=== PATIENT | female | born 1955 | race African-American/Black ===

== ENCOUNTER 2017-06-30 15:19 | Inpatient (IN) | payer OTHER, BC ==
[~2017-06-30] VITALS: Ht 167.6 cm; Wt 102.4 kg
[2017-06-30] MEDS ORDERED: ceFAZolin 2 GM PREMIX 50 ML ONE (15:23)
[2017-06-30] MEDS ORDERED: DIPHTH/TETANUS/ACEL PERTUSSIS (BOOSTER) 0.5 ML VIAL/PFS IM ONE ×2 (15:23→17:14)
[2017-06-30 15:25] VITALS: O2SAT 98
[2017-06-30] MEDS ORDERED: ONDANSETRON HCL 4 MG/2 ML VIAL ONE (15:28)
[2017-06-30 15:41] LABS: AUTOMATED NEUTROPHIL # 2.8 TH/MM3 (1.8-7.7); BASOPHIL # 0.1 TH/MM3 (0-0.2); BASOPHIL % 0.9 % (0.0-2.0); EOSINOPHIL # 0.2 TH/MM3 (0-0.4); EOSINOPHIL % 2.8 % (0.0-4.0); HEMATOCRIT 36.6 % (35.0-46.0); HEMOGLOBIN 12.5 GM/DL (11.6-15.3); LYMPHOCYTE # 2.5 TH/MM3 (1.0-4.8); MEAN CELL VOLUME 83.3 FL (80.0-100.0); MEAN CORPUSCULAR HEMOGLOBIN 28.4 PG (27.0-34.0); MEAN CORPUSCULAR HGB CONC 34.1 % (32.0-36.0); MEAN PLATELET VOLUME 9.3 FL (7.0-11.0); MONOCYTE # 0.4 TH/MM3 (0-0.9); NEUT % 48.3 % (16.0-70.0); PLATELET COUNT 205 TH/MM3 (150-450); RED CELL DISTRIBUTION WIDTH 13.6 % (11.6-17.2); WHITE BLOOD COUNT 5.9 TH/MM3 (4.0-11.0)
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
[2017-06-30 16:16] VITALS: BP 150/70; PULSE 81; RESP 17; TEMP 99.3; O2SAT 100
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
[2017-06-30 16:19] VITALS: O2SAT 99
[2017-06-30] MEDS ORDERED: LIDOCAINE 2%/EPINEPHrine 1:100,000 50ML MDV ONE (16:25)
[2017-06-30] MEDS ORDERED: LIDOCAINE 2%/EPINEPHrine 1:100,000 30ML MDV INFIL ONE (16:30)
[2017-06-30] MEDS ORDERED: LIDOCAINE 2%/EPINEPHrine 1:100,000 50ML MDV NERV BLOCK ONE (16:30)
[2017-06-30] MEDS ORDERED: MORPHINE SULFATE 2 MG/ML INJ IV PUSH ONE ×2 (16:30→17:30)
[2017-06-30 16:32] LABS: PROTHROMBIN TIME - PATIENT 10.3 SEC (9.8-11.6)
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
[2017-06-30] MEDS ORDERED: ceFAZolin 2 GM PREMIX 50 ML IV STA (17:14)
[2017-06-30] MEDS ORDERED: ONDANSETRON HCL 4 MG/2 ML VIAL IV PUSH ONE (17:15)
[2017-06-30] MEDS ORDERED: LUMI0.01 RIGHT EYE (17:20)
[2017-06-30] MEDS ORDERED: MOBI7.5T PO (17:20)
[2017-06-30] MEDS ORDERED: LEVEMIR SQ (17:20)
[2017-06-30] MEDS ORDERED: ACET250T3 PO (17:20)
[2017-06-30] MEDS ORDERED: NOVOLOGP2 SQ (17:20)
[2017-06-30] MEDS ORDERED: PILO1SOL5 RIGHT EYE (17:20)
[2017-06-30] MEDS ORDERED: BRIN1SUS2 RIGHT EYE (17:20)
[2017-06-30] MEDS ORDERED: METO-338 PO (17:20)
[2017-06-30] MEDS ORDERED: GABA300C5 PO (17:20)
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
[2017-06-30] MEDS ORDERED: Post-op Orders (for Pharmacy) XX ONE (18:00)
[2017-06-30] MEDS ORDERED: NALOXONE HCL 0.4 MG/ML AMP IV PUSH PRN (18:00)
[2017-06-30] MEDS ORDERED: SODIUM CHLORIDE 0.9% FLUSH 10 ML FLUSH IV FLUSH PRN (18:00)
[2017-06-30] MEDS ORDERED: ACETAMINOPHEN/HYDROcodone 325 MG/5 MG TAB PO PRN (18:00)
[2017-06-30 18:32] VITALS: BP 126/60; PULSE 80; RESP 20; O2SAT 95
[2017-06-30] MEDS: MORPHINE SULFATE 2 MG/ML INJ IV PUSH PRN ×2 (18:46→22:22)
[2017-06-30 19:12] VITALS: BP 136/61; PULSE 82; RESP 15; O2SAT 94
[2017-06-30] MEDS: SODIUM CHLOR 0.9% 1000 ML INJ 1,000 ML IV SCH (19:24)
[2017-06-30 19:25] VITALS: PULSE 84; RESP 22; O2SAT 96
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
[2017-06-30] MEDS: SODIUM CHLORIDE 0.9% FLUSH 10 ML FLUSH IV FLUSH SCH (21:00)
[2017-06-30] MEDS: DOCUSATE SODIUM 100 MG CAP PO SCH (21:00)
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
[2017-06-30] MEDS: FAMOTIDINE 20 MG/2 ML VIAL IV PUSH SCH (22:14)
[2017-07-01] VITALS (11 sets, daily range): BP systolic 124–153; BP diastolic 65–72; PULSE 81–104; RESP 12–19; TEMP 98.3–98.7; O2SAT 95–100
[2017-07-01] MEDS: MORPHINE SULFATE 2 MG/ML INJ IV PUSH PRN ×4 (01:11→17:47)
[2017-07-01] MEDS: ONDANSETRON HCL 4 MG/2 ML VIAL IV PUSH PRN ×2 (03:54→17:46)
[2017-07-01] MEDS: SODIUM CHLOR 0.9% 1000 ML INJ 1,000 ML IV SCH ×2 (03:59→14:00)
[2017-07-01 05:44] LABS: AUTOMATED NEUTROPHIL # 5.5 TH/MM3 (1.8-7.7); BASOPHIL % 0.4 % (0.0-2.0); EOSINOPHIL % 0.6 % (0.0-4.0); HEMATOCRIT 29.8 % (35.0-46.0); HEMOGLOBIN 10.3 GM/DL (11.6-15.3); LYMPH % 19.5 % (9.0-44.0); LYMPHOCYTE # 1.5 TH/MM3 (1.0-4.8); MEAN CELL VOLUME 82.9 FL (80.0-100.0); MEAN CORPUSCULAR HEMOGLOBIN 28.7 PG (27.0-34.0); MEAN CORPUSCULAR HGB CONC 34.7 % (32.0-36.0); MEAN PLATELET VOLUME 9.2 FL (7.0-11.0); MONOCYTE # 0.7 TH/MM3 (0-0.9); NEUT % 70.5 % (16.0-70.0); PLATELET COUNT 152 TH/MM3 (150-450); RED CELL DISTRIBUTION WIDTH 13.5 % (11.6-17.2); WHITE BLOOD COUNT 7.8 TH/MM3 (4.0-11.0)
[2017-07-01 06:08] LABS: BICARBONATE 19.1 MEQ/L (21.0-32.0); CALCIUM 8.2 MG/DL (8.5-10.1); CREATININE 0.92 MG/DL (0.50-1.00)
[2017-07-01] MEDS ORDERED: GLUCAGON 1 MG/ML VIAL OTHER PRN (07:15)
[2017-07-01] MEDS ORDERED: DEXTROSE 50% IN WATER 50 ML VIAL(D50) IV PUSH PRN (07:15)
[2017-07-01] MEDS ORDERED: INSULIN HUMAN REGULAR 1,000 UNITS/10 ML VIAL ONE (07:49)
[2017-07-01] MEDS: INSULIN HUMAN REGULAR 1,000 UNITS/10 ML VIAL SQ PRN ×2 (07:50→13:05)
[2017-07-01] MEDS ORDERED: SODIUM CHLORID 0.9% 500 ML IV PRN (08:00)
[2017-07-01] MEDS ORDERED: LACTATED RINGER'S 1000 ML IV PRN (08:00)
[2017-07-01] MEDS ORDERED: METOPROLOL TARTRATE 25 MG TAB PO PRN (08:00)
[2017-07-01] MEDS: INSULIN ASPART SUPPLEMENTAL SCALE SQ SCH ×4 (08:00→20:23)
[2017-07-01] MEDS ORDERED: SODIUM CHLOR 0.9% 250 ML INJ 250 ML ONE (08:59)
[2017-07-01] MEDS ORDERED: ceFAZolin INJ 1,000 MG VIAL ONE (08:59)
[2017-07-01] MEDS ORDERED: GENTAMICIN SULFATE 80 MG/2 ML VIAL ONE (08:59)
[2017-07-01] MEDS ORDERED: VANCOMYCIN HCL 1000 MG VIAL ONE (08:59)
[2017-07-01] MEDS: SODIUM CHLORIDE 0.9% FLUSH 10 ML FLUSH IV FLUSH SCH ×2 (09:00→20:25)
[2017-07-01] MEDS: FAMOTIDINE 20 MG/2 ML VIAL IV PUSH SCH ×2 (09:00→20:24)
[2017-07-01] MEDS: DOCUSATE SODIUM 100 MG CAP PO SCH ×2 (09:00→20:25)
[2017-07-01] MEDS ORDERED: CLINDAMYCIN PHOS 600 MG/4 ML VIAL ONE (09:13)
--- NOTE | 2017-07-01 11:42 | PD.OP ---
cc: Frantz Peace MD Operative Report Date of Surgery: Jul 01, 2017 Preoperative Diagnosis: Left tibia shaft fracture, left distal tibia and fibula fractures Postoperative Diagnosis: Procedure: Open reduction total fixation left distal tibia and fibula fractures, intramedullary nail fixation of left tibia Anesthesia: Gen. Surgeon: Frantz Peace Elevators Inspector(s): NASEEM Judd PA-C The surgical procedure was assisted by my physician fws faculty assistant. My P.A. presence was necessary throughout this case for the manipulation and positioning of the surgical extremity. My P.A. was assisting me throughout the duration of this procedure. The skill set of a physician fws faculty assistant was medically necessary to complete this procedure. During the surgical case the director medical surgical was working at the back table and the physician fws faculty assistant was directly assisting me. Operation and Findings: Implants: ITS [9]mm x [345]mm tibial nail Plan of activity: NWB left leg Patient was seen and examined preoperatively. An informed consent was obtained from patient after detailed discussion of risk and benefits. Risks of surgery include bleeding, infection, painful hardware, nonunion, malunion, leg length discrepancy, need for hardware removal, and medical complications associated with anesthesia including blood clots, stroke, heart attack, and were discussed. Operative site was marked. Patient was brought to the operating room placed on or table. Patient received IV antibiotics and was given IV sedation GETA. Operative leg was prepped with alcohol Hibiclens and draped in usual sterile fashion. Timeout procedure was performed Procedure began with reduction of the tibial shaft fracture fracture. 2 small incisions were made around the fracture site. A percutaneous clamp was placed. Traction was applied. Fracture was reduced. There was comminution of the fracture. The fracture reduced and excellent alignment was achieved. Fracture clamp was used to aid in reduction. Next attention was turned towards the distal tibia. There were or fractures through the distal tibia pilon and distal fibula. A fracture tenaculum was used to compress the split of the articular surface. Fluoroscopy confirmed excellent alignment of the articular surface. A 3 cm incision was made over the medial malleolus. The medial malleolus fragment was also reduced. Fracture tenaculum was used to compress fracture fragment. Using percutaneous incisions, 2 guide pins for the 4.0 cannulated screws were placed from anterior to posterior. Fluoroscopy was used to confirm appropriate guidepin placement. Cannulated drill was placed over the guidepins. 2 appropriate length screws were now placed. Good compression was obtained across the articular surface. 2 additional screws were placed across the medial malleolus fragment. Fluoroscopy confirmed well aligned fractures of the distal tibia. Next a 3 cm incision was made proximal to the patella. Quadriceps tendon was split in line with fibers. Cannulas were placed in the patellofemoral joint to protect the articular surface at all times. A guidepin was placed into the tibia and advanced in the tibial canal. Fluoroscopy was used to confirm appropriate guidepin placement. An opening reamer was used to open the tibial canal. A ball-tipped guidewire was advanced down the tibial canal. Guidepin was passed across the fracture site into the center of the distal tibia. Fluoroscopy confirmed guidepin placement. The nail length was now measured. The fracture was now held in a reduced position and the canal was reamed. The canal was reamed up to appropriate size. A Synthes nail was now selected. Next the nail was fully seated. Using perfect buckland technique 4 distal interlocking screws were placed. Using the insertion handle as a guide 2 proximal interlocking screws were placed. Fluoroscopy confirmed excellent of fracture with well-placed hardware. Next attention was turned to the distal fibula. A 4 inch incision was made over the distal fibula. Subcutaneous tissue dissected with Bovie. Fracture site was visualized. There was mild comminution present. Fracture fragments were manipulated. Fracture tenaculum was used to compress fracture fragment. A 3.5 cortical lag screw was used to compress the fracture fragments. An ITS fibular plate was selected. Plate was provisionally held to bone with K wires. 3.5 cortical screws were used to compress plate to bone. Multiple cortical screws were placed in the fibular shaft. Additional locking screws were placed distally. All screws were predrilled and premeasured for appropriate length. The syndesmosis was now stressed. Syndesmosis appeared to be stable. Attention was now turned to closure. Incisions and the knee joint were thoroughly irrigated with sterile saline. Fascia was closed with #1 Vicryl, subcutaneous tissues closed with 3-0 Vicryl and skin was closed with kosta. Sterile dressings were applied. Patient was placed into a well molded well- padded ankle splint. Patient was awakened and transferred to recovery in stable condition. Frantz Peace MD Jul 01, 2017 11:42
[2017-07-01] MEDS ORDERED: Post-op Orders (for Pharmacy) XX ONE (11:45)
[2017-07-01] MEDS ORDERED: ceFAZolin 2 GM PREMIX 50 ML IV SCH (11:45)
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
[2017-07-01] MEDS ORDERED: HYDR-3366 PO (11:46)
[2017-07-01] MEDS ORDERED: XARE10TA PO (11:46)
[2017-07-01] MEDS ORDERED: ROCURONIUM INJ 50 MG/5 ML SYRINGE IV PUSH ONE (12:00)
[2017-07-01] MEDS ORDERED: ONDANSETRON HCL 4 MG/2 ML VIAL IV ONE (12:00)
[2017-07-01] MEDS ORDERED: SUCCINYLCHOLINE CHLORIDE 100 MG/5 ML SYRINGE IV PUSH ONE (12:00)
[2017-07-01] MEDS ORDERED: LACTATED RINGER'S 1000 ML INJ 1,000 ML IV ONE (12:00)
[2017-07-01] MEDS ORDERED: METOPROLOL TARTRATE 5 MG/5 ML VIAL IV PUSH ONE (12:00)
[2017-07-01] MEDS ORDERED: LIDOCAINE HCL 1% PF 5 ML SYRINGE OTHER ONE (12:00)
[2017-07-01] MEDS ORDERED: NEOSTIGMINE 5 MG/5 ML SYRINGE IV PUSH ONE (12:00)
[2017-07-01] MEDS ORDERED: GLYCOPYRROLATE 1 MG/5 ML SYRINGE IV PUSH ONE (12:00)
[2017-07-01] MEDS ORDERED: hydrALAZINE HCL 20 MG/ML VIAL IV ONE (12:00)
[2017-07-01] MEDS ORDERED: LABETALOL HCL 100 MG/20 ML VIAL IV ONE (12:00)
[2017-07-01] MEDS ORDERED: PROPOFOL 200 MG/20 ML AMP IV ONE (12:00)
[2017-07-01] MEDS ORDERED: DO NOT ADM ANY ANTICOAGULANT DRUGS PRN (12:40)
[2017-07-01] MEDS: LACTATED RINGER'S 1000 ML INJ 1,000 ML IV SCH ×2 (13:00→23:00)
[2017-07-01] MEDS ORDERED: ACETAMINOPHEN/HYDROcodone 325 MG/10 MG TAB PO PRN (13:00)
[2017-07-01] MEDS ORDERED: diphenhydrAMINE HCL 25 MG CAP PO PRN (13:00)
--- NOTE | 2017-07-01 13:00 | RADRPT ---
EXAM DATE/TIME: 07/01/2017 11:19 [place] COMPARISON: No previous studies available for comparison. INDICATIONS : Left tib/fib fracture- ORIF of left lower leg. Done in OR. MEDICAL HISTORY : None. SURGICAL HISTORY : None. ENCOUNTER: Initial ACUITY: 1 day PAIN SCORE: Non-responsive. LOCATION: Left Lower leg. FINDINGS: Postop changes of right interpretation the distal tibia and plate and screw fixation of the distal fi bula. Near-anatomic alignment. Ankle mortise intact. CONCLUSION: 1. Postoperative fixation distal tibia and fibula. Kong Johnson MD on July 01, 2017 at 12:52 Board Certified Radiologist. This report was verified electronically.
[2017-07-01] MEDS: KETOROLAC TROMETHAMINE 30 MG/ML (IVP) VIAL IVP SCH ×2 (13:21→20:25)
[2017-07-01] MEDS ORDERED: *morphine SULFATE 10 MG/ML PERIprocedure ONLY ONE (13:44)
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
[2017-07-01] MEDS: CLINDAMYCIN 600 MG/NS PREMIX 50 ML IV SCH (16:35)
[2017-07-01] MEDS ORDERED: WALKER/ADULT/FO1 MIS (16:52)
[2017-07-01] MEDS ORDERED: WHEEMIS3 (16:52)
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
[2017-07-01] MEDS: PILOCARPINE HCL 1% OPHT SOLN 15 ML BTL RIGHT EYE SCH (17:28)
[2017-07-01] MEDS: GABAPENTIN 300 MG CAP PO SCH (17:28)
[2017-07-01] MEDS: acetaZOLAMIDE 250 MG TAB PO SCH ×2 (17:28→20:35)
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
[2017-07-01] MEDS: METOPROLOL TARTRATE 50 MG TAB PO SCH (20:25)
[2017-07-01] MEDS: VANCOMYCIN INJ 1,000 MG in SODIUM CHLOR 0.9% 250 ML INJ 250 ML IV SCH (20:25)
[2017-07-01] MEDS: BRIMONIDINE TARTRATE 0.2% OPHT SOLN 5 ML BTL RIGHT EYE SCH (20:26)
[2017-07-01] MEDS: LATANOPROST 0.005% OPHT SOLN 2.5 ML BTL RIGHT EYE SCH (20:27)
[2017-07-01] MEDS ORDERED: BRIMONIDINE RIGHT EYE SCH (22:00)
[2017-07-01] MEDS ORDERED: BRINZOLAMIDE RIGHT EYE SCH (22:00)
--- NOTE | 2017-07-01 22:35 | EKG ---
Date Performed: 07/01/2017 Time Performed: 07:44:10 PTAGE: 62 years EKG: Sinus rhythm NONSPECIFIC T-WAVE ABNORMALITY ABNORMAL ECG NO PREVIOUS TRACING DOCTOR: Abdoul James Interpretating Date/Time 07/01/2017 22:34:59
[2017-07-02] VITALS (14 sets, daily range): BP systolic 131–148; BP diastolic 60–73; PULSE 73–97; RESP 12–19; TEMP 98.3–98.9; O2SAT 97–100
[2017-07-02] MEDS: MORPHINE SULFATE 2 MG/ML INJ IV PUSH PRN ×4 (01:07→21:24)
[2017-07-02] MEDS: CLINDAMYCIN 600 MG/NS PREMIX 50 ML IV SCH ×3 (01:07→17:11)
[2017-07-02] MEDS: SODIUM CHLOR 0.9% 1000 ML INJ 1,000 ML IV SCH ×3 (03:00→09:07)
[2017-07-02 04:56] LABS: AUTOMATED NEUTROPHIL # 5.2 TH/MM3 (1.8-7.7); BASOPHIL % 0.5 % (0.0-2.0); EOSINOPHIL # 0.1 TH/MM3 (0-0.4); EOSINOPHIL % 1.8 % (0.0-4.0); HEMATOCRIT 25.4 % (35.0-46.0); HEMOGLOBIN 8.5 GM/DL (11.6-15.3); LYMPH % 17.5 % (9.0-44.0); LYMPHOCYTE # 1.3 TH/MM3 (1.0-4.8); MEAN CELL VOLUME 83.1 FL (80.0-100.0); MEAN CORPUSCULAR HEMOGLOBIN 27.8 PG (27.0-34.0); MEAN CORPUSCULAR HGB CONC 33.5 % (32.0-36.0); MONO % 11.2 % (0.0-8.0); MONOCYTE # 0.8 TH/MM3 (0-0.9); PLATELET COUNT 135 TH/MM3 (150-450); RED BLOOD COUNT 3.05 MIL/MM3 (4.00-5.30); RED CELL DISTRIBUTION WIDTH 13.8 % (11.6-17.2); WHITE BLOOD COUNT 7.6 TH/MM3 (4.0-11.0)
[2017-07-02 05:02] LABS: CALCIUM 7.8 MG/DL (8.5-10.1); CREATININE 0.92 MG/DL (0.50-1.00)
[2017-07-02] MEDS: KETOROLAC TROMETHAMINE 30 MG/ML (IVP) VIAL IVP SCH (05:15)
[2017-07-02] MEDS: BRIMONIDINE TARTRATE 0.2% OPHT SOLN 5 ML BTL RIGHT EYE SCH ×3 (05:15→22:00)
[2017-07-02] MEDS: ONDANSETRON HCL 4 MG/2 ML VIAL IV PUSH PRN ×2 (07:51→20:42)
[2017-07-02] MEDS: LACTATED RINGER'S 1000 ML INJ 1,000 ML IV SCH (08:11)
[2017-07-02] MEDS: FAMOTIDINE 20 MG/2 ML VIAL IV PUSH SCH ×2 (08:18→20:42)
[2017-07-02] MEDS: DOCUSATE SODIUM 100 MG CAP PO SCH ×4 (08:18→21:00)
[2017-07-02] MEDS: METOPROLOL TARTRATE 50 MG TAB PO SCH ×2 (08:18→20:42)
[2017-07-02] MEDS: GABAPENTIN 300 MG CAP PO SCH ×4 (08:18→17:09)
[2017-07-02] MEDS: SODIUM CHLORIDE 0.9% FLUSH 10 ML FLUSH IV FLUSH SCH ×2 (08:19→21:31)
[2017-07-02] MEDS: PILOCARPINE HCL 1% OPHT SOLN 15 ML BTL RIGHT EYE SCH ×3 (08:19→17:09)
[2017-07-02] MEDS: VANCOMYCIN INJ 1,000 MG in SODIUM CHLOR 0.9% 250 ML INJ 250 ML IV SCH (08:20)
[2017-07-02] MEDS: INSULIN ASPART SUPPLEMENTAL SCALE SQ SCH ×2 (08:21→13:00)
[2017-07-02] MEDS: MAGNESIUM HYDROXIDE SUSP 30 ML CUP PO SCH ×3 (09:00→21:00)
[2017-07-02] MEDS ORDERED: HYDROmorphone HCL PF 2 MG/ML VIAL IV PUSH ONE (09:45)
[2017-07-02] MEDS: FLUTICASONE PROPIONATE 50 MCG/ACT 16 GM NASAL SPRAY NASAL SCH ×2 (09:45→21:32)
[2017-07-02] MEDS ORDERED: RESP: ALBUTEROL 2.5 MG/IPRATROPIUM 0.5 MG NEB (PRN) NEB (09:45)
[2017-07-02] MEDS: RESP: ALBUTEROL 2.5 MG/IPRATROPIUM 0.5 MG NEB (SCH) NEB ×3 (11:16→19:55)
[2017-07-02] MEDS: ENOXAPARIN SODIUM 40 MG/0.4 ML SYRINGE SQ SCH (12:59)
[2017-07-02] MEDS: acetaZOLAMIDE 250 MG TAB PO SCH ×2 (13:00→17:08)
[2017-07-02] MEDS ORDERED: GLUCAGON 1 MG/ML VIAL OTHER PRN (13:45)
[2017-07-02] MEDS ORDERED: DEXTROSE 50% IN WATER 50 ML SYRINGE IV PUSH PRN (13:45)
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
--- NOTE | 2017-07-02 14:59 | PD.ORT.PN ---
Subjective Subjective Remarks no new complaints about L leg Objective Vitals Vital Signs Date Time Temp Pulse Resp B/P (MAP) Pulse Ox O2 Delivery O2 Flow Rate FiO2 07/02/17 12:00 77 07/02/17 12:00 98.6 78 14 131/60 (83) 100 07/02/17 10:00 73 07/02/17 08:00 76 07/02/17 08:00 98.7 97 19 134/73 (93) 97 07/02/17 07:00 97 Room Air 07/02/17 06:15 18 07/02/17 06:00 89 07/02/17 04:00 89 07/02/17 04:00 98.5 97 18 148/66 (93) 100 07/02/17 02:00 89 07/02/17 01:16 20 07/02/17 00:00 89 07/02/17 00:00 98.5 97 18 148/66 (93) 100 07/01/17 22:00 89 07/01/17 20:00 98.7 97 18 145/66 (92) 100 07/01/17 20:00 87 07/01/17 19:00 100 Nasal Cannula 2.00 07/01/17 18:00 88 07/01/17 16:00 82 13 147/65 (92) 100 07/01/17 16:00 87 07/01/17 15:00 98.3 84 12 153/70 (97) 100 I/O 07/01/17 07/01/17 07/01/17 07/02/17 07/02/17 07/02/17 07:00 15:00 23:00 07:00 15:00 23:00 Intake Total 1856 ml 1900 ml 495 ml 300 ml Output Total 1400 ml 550 ml 500 ml Balance 1856 ml 500 ml -55 ml -500 ml 300 ml Intake Oral 0 ml IV Total 1856 ml 495 ml 300 ml Other 1900 ml Output Urine Total 1300 ml 550 ml 500 ml Estimated Blood Loss 100 ml # Bowel Movements 0 Result Diagram: 07/02/172 07/02/17 033 Imaging Last 24 hours Impressions Radius/Ulna X-Ray 06/30/17 1701 Signed Impressions: Service Date/Time: June 17:14 - CONCLUSION: 1. Soft tissue injury in the proximal forearm with multiple radiopaque foreign bodies/debris primarily along the posterior ulnar aspect of the forearm. John Hinton MD Thoracic Spine CT 06/30/17 1522 Signed Impressions: Service Date/Time: June 15:38 - CONCLUSION: Normal examination. Cecil Terrazas MD Pelvis X-Ray 06/30/17 1522 Signed Impressions: Service Date/Time: June 15:23 - CONCLUSION: Unremarkable examination of the pelvis. Cecil Terrazas MD Lumbar Spine CT 06/30/17 1522 Signed Impressions: Service Date/Time: , June 30, 2017 15:38 - CONCLUSION: No evidence of acute fracture. Large right-sided osteophyte at L5-S1 narrows the neural foramen. Mild narrowing at L5-S1 secondary to large central disc protrusion, chronic. No evidence of acute fracture. Cecil Terrazas MD Head CT 06/30/17 1522 Signed Impressions: Service Date/Time: June 15:38 - CONCLUSION: Normal examination. Cecil Terrazas MD Chest X-Ray 06/30/17 1522 Signed Impressions: Service Date/Time: June 15:23 - CONCLUSION: No acute disease. Wero Copeland Jr., MD Chest CT 06/30/17 1522 Signed Impressions: Service Date/Time: June 15:49 - CONCLUSION: 1. No evidence for acute traumatic injury in the chest. John Hinton MD Cervical Spine CT 06/30/17 1522 Signed Impressions: Service Date/Time: June 15:47 - CONCLUSION: 1. Unstable C2 posterior process fractures. Fracture extends through the left C2 pedicle extending anteriorly to the posterior inferior C2 endplate with contralateral fracture through the right facets/pedicle junction. The 2. Fracture plane does extend through the left C2 transverse foramen. This may result in injury to the vertebral artery. Consider CTA examination if there is clinical concern. John Hinton MD Abdomen/Pelvis CT 06/30/17 1522 Signed Impressions: Service Date/Time: June 15:49 - CONCLUSION: 1. No acute traumatic injury in the abdomen or pelvis. 2. Ancillary findings include cholelithiasis and mild sigmoid diverticulosis. John Hinton MD Objective Remarks A&O *3 Clean dry surgical dressings on left leg. Neurovascularly intact left leg. calf NT Assessment & Plan Assessment and Plan Postop day #1 status post left tibia IM nail with ORIF left distal tibia and fibula Left ankle splint--do not change Nonweightbearing left leg Elevate left foot Lovenox for DVT prophylaxis ordered in the in-pt computer (and Xarelto Rx noted on discharge orders) Case management for discharge planning Neurosurgery managing cervical spine injury Eyad Man MD Jul 02, 2017 14:59
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
[2017-07-02] MEDS: LATANOPROST 0.005% OPHT SOLN 2.5 ML BTL RIGHT EYE SCH (21:00)
[2017-07-02] MEDS ORDERED: ACET250T3 PO (21:41)
[2017-07-03] VITALS (12 sets, daily range): BP systolic 121–153; BP diastolic 52–68; PULSE 84–99; RESP 11–18; TEMP 96.9–99.9; O2SAT 95–100
[2017-07-03] MEDS: CLINDAMYCIN 600 MG/NS PREMIX 50 ML IV SCH ×2 (00:50→09:39)
[2017-07-03] MEDS: MORPHINE SULFATE 2 MG/ML INJ IV PUSH PRN ×4 (01:06→23:42)
[2017-07-03] MEDS: RESP: ALBUTEROL 2.5 MG/IPRATROPIUM 0.5 MG NEB (SCH) NEB ×4 (04:04→20:25)
[2017-07-03] MEDS: BRIMONIDINE TARTRATE 0.2% OPHT SOLN 5 ML BTL RIGHT EYE SCH ×2 (05:03→11:07)
[2017-07-03 05:14] LABS: AUTOMATED NEUTROPHIL # 5.2 TH/MM3 (1.8-7.7); BASOPHIL # 0.1 TH/MM3 (0-0.2); BASOPHIL % 0.7 % (0.0-2.0); EOSINOPHIL # 0.2 TH/MM3 (0-0.4); LYMPH % 18.2 % (9.0-44.0); LYMPHOCYTE # 1.4 TH/MM3 (1.0-4.8); MEAN CELL VOLUME 83.5 FL (80.0-100.0); MEAN CORPUSCULAR HEMOGLOBIN 27.7 PG (27.0-34.0); MEAN CORPUSCULAR HGB CONC 33.2 % (32.0-36.0); MEAN PLATELET VOLUME 8.8 FL (7.0-11.0); MONO % 10.2 % (0.0-8.0); MONOCYTE # 0.8 TH/MM3 (0-0.9); NEUT % 68.9 % (16.0-70.0); PLATELET COUNT 136 TH/MM3 (150-450); RED BLOOD COUNT 2.88 MIL/MM3 (4.00-5.30); RED CELL DISTRIBUTION WIDTH 13.6 % (11.6-17.2); WHITE BLOOD COUNT 7.6 TH/MM3 (4.0-11.0)
[2017-07-03 05:16] LABS: ALBUMIN 2.4 GM/DL (3.4-5.0); ALT (GPT) 30 U/L (10-53); AST (GOT) 21 U/L (15-37); BICARBONATE 21.6 MEQ/L (21.0-32.0); CALCIUM 7.5 MG/DL (8.5-10.1); CHLORIDE 118 MEQ/L (98-107); GLUCOSE,RANDOM 249 MG/DL (74-106); SODIUM (NA) 147 MEQ/L (136-145)
[2017-07-03 05:23] LABS: ALKALINE PHOSPHATASE 60 U/L (45-117); BLOOD UREA NITROGEN 13 MG/DL (7-18); CREATININE 1.01 MG/DL (0.50-1.00); GLOMERULAR FILTRATION RATE 67 ML/MIN (>89); TOTAL BILIRUBIN ADULT 0.5 MG/DL (0.2-1.0); TOTAL PROTEIN 5.9 GM/DL (6.4-8.2)
[2017-07-03] MEDS: SODIUM CHLOR 0.9% 1000 ML INJ 1,000 ML IV SCH (06:00)
[2017-07-03] MEDS ORDERED: BISACODYL 10 MG SUPP RECTAL ONE (07:15)
[2017-07-03] MEDS ORDERED: BISACODYL EC 5 MG TABEC PO ONE (07:15)
--- NOTE | 2017-07-03 08:52 | PD.ORT.PN ---
Subjective Subjective Remarks Accompanied by 3 family members. Wearing cervical collar. Moderate pain left leg. No new complaints or concerns. Questions about activity and anticoagulation. Objective Vitals Vital Signs Date Time Temp Pulse Resp B/P (MAP) Pulse Ox O2 Delivery O2 Flow Rate FiO2 07/03/17 08:02 100 07/03/17 06:00 93 07/03/17 04:00 88 07/03/17 04:00 98.3 88 11 121/56 (77) 100 07/03/17 02:00 89 07/03/17 00:00 88 07/03/17 00:00 99.9 84 11 153/68 (96) 100 07/02/17 22:00 88 07/02/17 20:00 98.9 92 12 146/64 (91) 100 07/02/17 20:00 89 07/02/17 19:55 99 21 07/02/17 18:00 76 07/02/17 16:00 98.3 82 18 144/65 (91) 98 07/02/17 16:00 86 07/02/17 14:00 80 07/02/17 12:00 77 07/02/17 12:00 98.6 78 14 131/60 (83) 100 07/02/17 10:00 73 I/O 07/02/17 07/02/17 07/02/17 07/03/17 07/03/17 07/03/17 07:00 15:00 23:00 07:00 15:00 23:00 Intake Total 300 ml 200 ml 3553 ml Output Total 500 ml 450 ml 575 ml Balance -500 ml 300 ml -250 ml 2978 ml Intake Oral 200 ml IV Total 300 ml 3553 ml Output Urine Total 500 ml 450 ml 575 ml # Bowel Movements 0 Result Diagram: 07/03/17 0433 07/03/17 0433 Imaging Last 24 hours Impressions Radius/Ulna X-Ray 06/30/17 1701 Signed Impressions: Service Date/Time: June 17:14 - CONCLUSION: 1. Soft tissue injury in the proximal forearm with multiple radiopaque foreign bodies/debris primarily along the posterior ulnar aspect of the forearm. John Hinton MD Thoracic Spine CT 06/30/17 1522 Signed Impressions: Service Date/Time: June 15:38 - CONCLUSION: Normal examination. Cecil Terrazas MD Pelvis X-Ray 06/30/17 1522 Signed Impressions: Service Date/Time: June 15:23 - CONCLUSION: Unremarkable examination of the pelvis. Cecil Terrazas MD Lumbar Spine CT 06/30/17 1522 Signed Impressions: Service Date/Time: June 15:38 - CONCLUSION: No evidence of acute fracture. Large right-sided osteophyte at L5-S1 narrows the neural foramen. Mild narrowing at L5-S1 secondary to large central disc protrusion, chronic. No evidence of acute fracture. Cecil Terrazas MD Head CT 06/30/17 1522 Signed Impressions: Service Date/Time: June 15:38 - CONCLUSION: Normal examination. Cecil Terrazas MD Chest X-Ray 06/30/17 1522 Signed Impressions: Service Date/Time: June 15:23 - CONCLUSION: No acute disease. Wero Copeland Jr., MD Chest CT 06/30/17 1522 Signed Impressions: Service Date/Time: June 15:49 - CONCLUSION: 1. No evidence for acute traumatic injury in the chest. John Hinton MD Cervical Spine CT 06/30/17 1522 Signed Impressions: Service Date/Time: June 15:47 - CONCLUSION: 1. Unstable C2 posterior process fractures. Fracture extends through the left C2 pedicle extending anteriorly to the posterior inferior C2 endplate with contralateral fracture through the right facets/pedicle junction. The 2. Fracture plane does extend through the left C2 transverse foramen. This may result in injury to the vertebral artery. Consider CTA examination if there is clinical concern. John Hinton MD Abdomen/Pelvis CT 06/30/17 1522 Signed Impressions: Service Date/Time: June 15:49 - CONCLUSION: 1. No acute traumatic injury in the abdomen or pelvis. 2. Ancillary findings include cholelithiasis and mild sigmoid diverticulosis. John Hinton MD Objective Remarks Laying in bed Cervical collar in place NAD A&O *3 LLE Dressing/splint c/d/i, no skin abrasion prox/distal at splint, Wiggles toes freely, mild swelling toes, cap refill less than 2 secs, calf nontender Assessment & Plan Ortho Post Op Day #: 2 Problem List: Assessment and Plan pod#2 s/p ORIF left tibia IM nail with ORIF left distal tibia and fibula Ortho stable. Maintain left leg splint and dressing. No not change. Do not get wet. Nonweightbearing left leg. Ice / Elevate left foot Lovenox for DVT prophylaxis ordered in the in-pt computer (and Xarelto Rx noted on discharge orders) Neuro for cervical injury, C2 fracture. Case management for discharge planning. Barb Lund Jul 03, 2017 08:52
[2017-07-03] MEDS: FLUTICASONE PROPIONATE 50 MCG/ACT 16 GM NASAL SPRAY NASAL SCH ×2 (09:00→20:47)
[2017-07-03] MEDS: GABAPENTIN 300 MG CAP PO SCH ×3 (09:00→13:57)
[2017-07-03] MEDS: DOCUSATE SODIUM 50 MG/SENNA 8.6 MG TAB PO SCH ×2 (09:00→20:45)
[2017-07-03] MEDS: PILOCARPINE HCL 1% OPHT SOLN 15 ML BTL RIGHT EYE SCH ×3 (09:00→16:57)
[2017-07-03] MEDS: SODIUM CHLORIDE 0.9% FLUSH 10 ML FLUSH IV FLUSH SCH ×2 (09:00→20:54)
[2017-07-03] MEDS: MAGNESIUM HYDROXIDE SUSP 30 ML CUP PO SCH ×2 (09:00→20:45)
[2017-07-03] MEDS: LACTULOSE SYRUP 20 GM/30 ML CUP PO SCH (09:00)
[2017-07-03] MEDS: FAMOTIDINE 20 MG TAB PO SCH ×2 (09:39→20:47)
[2017-07-03] MEDS: METOPROLOL TARTRATE 50 MG TAB PO SCH ×2 (09:39→20:47)
[2017-07-03] MEDS: acetaZOLAMIDE 125 MG TAB PO SCH ×3 (09:39→16:57)
[2017-07-03] MEDS: INSULIN ASPART SUPPLEMENTAL SCALE SQ SCH ×4 (09:43→16:53)
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
[2017-07-03] MEDS: ENOXAPARIN SODIUM 40 MG/0.4 ML SYRINGE SQ SCH (11:11)
[2017-07-03] MEDS: ONDANSETRON HCL 4 MG/2 ML VIAL IV PUSH PRN ×3 (11:18→23:42)
[2017-07-03] MEDS: INSULIN ASPART 1,000 UNITS/10 ML VIAL SQ SCH ×2 (13:30→16:53)
[2017-07-03] MEDS ORDERED: BRINZOLAMIDE RIGHT EYE SCH (18:00)
[2017-07-03] MEDS ORDERED: BRIMONIDINE RIGHT EYE SCH (18:00)
[2017-07-03] MEDS ORDERED: [UNRECOGNIZED DRUG - OTHER] RIGHT EYE SCH (18:00)
[2017-07-03] MEDS ORDERED: OPTHALMIC RIGHT EYE SCH (21:00)
[2017-07-03] MEDS ORDERED: LUMIGAN 0.01% RIGHT EYE SCH (21:00)
[2017-07-04] VITALS (8 sets, daily range): BP systolic 129–148; BP diastolic 56–65; PULSE 79–90; RESP 18; TEMP 98.2–99.4; O2SAT 96–99
[2017-07-04] MEDS: RESP: ALBUTEROL 2.5 MG/IPRATROPIUM 0.5 MG NEB (SCH) NEB (03:35)
[2017-07-04 05:47] LABS: AUTOMATED NEUTROPHIL # 4.6 TH/MM3 (1.8-7.7); BASOPHIL % 0.6 % (0.0-2.0); EOSINOPHIL # 0.2 TH/MM3 (0-0.4); EOSINOPHIL % 2.2 % (0.0-4.0); HEMATOCRIT 21.9 % (35.0-46.0); HEMOGLOBIN 7.4 GM/DL (11.6-15.3); LYMPH % 20.1 % (9.0-44.0); LYMPHOCYTE # 1.4 TH/MM3 (1.0-4.8); MEAN CELL VOLUME 83.1 FL (80.0-100.0); MEAN CORPUSCULAR HEMOGLOBIN 28.2 PG (27.0-34.0); MONO % 9.8 % (0.0-8.0); MONOCYTE # 0.7 TH/MM3 (0-0.9); NEUT % 67.3 % (16.0-70.0); PLATELET COUNT 147 TH/MM3 (150-450); RED BLOOD COUNT 2.64 MIL/MM3 (4.00-5.30); RED CELL DISTRIBUTION WIDTH 13.9 % (11.6-17.2); WHITE BLOOD COUNT 6.9 TH/MM3 (4.0-11.0)
[2017-07-04] MEDS: MORPHINE SULFATE 2 MG/ML INJ IV PUSH PRN (06:00)
[2017-07-04] MEDS: INSULIN ASPART SUPPLEMENTAL SCALE SQ SCH ×4 (06:00→17:40)
[2017-07-04] MEDS: ONDANSETRON HCL 4 MG/2 ML VIAL IV PUSH PRN ×3 (06:00→18:06)
[2017-07-04 06:06] LABS: BICARBONATE 20.2 MEQ/L (21.0-32.0); CALCIUM 7.9 MG/DL (8.5-10.1); CREATININE 0.77 MG/DL (0.50-1.00)
[2017-07-04] MEDS ORDERED: MAGNESIUM CITRATE SOLN 300 ML BTL PO ONE (07:00)
[2017-07-04] MEDS: MAGNESIUM HYDROXIDE SUSP 30 ML CUP PO SCH ×2 (09:00→20:59)
[2017-07-04] MEDS: LACTULOSE SYRUP 20 GM/30 ML CUP PO SCH (09:00)
[2017-07-04] MEDS: DOCUSATE SODIUM 50 MG/SENNA 8.6 MG TAB PO SCH ×2 (09:00→20:59)
[2017-07-04] MEDS: GABAPENTIN 300 MG CAP PO SCH ×3 (09:00→17:29)
[2017-07-04] MEDS: INSULIN ASPART 1,000 UNITS/10 ML VIAL SQ SCH ×3 (09:30→17:41)
[2017-07-04] MEDS: FAMOTIDINE 20 MG TAB PO SCH ×2 (10:10→20:59)
[2017-07-04] MEDS: METOPROLOL TARTRATE 50 MG TAB PO SCH ×2 (10:10→20:58)
[2017-07-04] MEDS: acetaZOLAMIDE 125 MG TAB PO SCH ×3 (10:10→17:37)
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
[2017-07-04] MEDS: PILOCARPINE HCL 1% OPHT SOLN 15 ML BTL RIGHT EYE SCH ×3 (10:43→17:39)
[2017-07-04] MEDS: FLUTICASONE PROPIONATE 50 MCG/ACT 16 GM NASAL SPRAY NASAL SCH ×2 (10:43→20:59)
[2017-07-04] MEDS: SODIUM CHLORIDE 0.9% FLUSH 10 ML FLUSH IV FLUSH SCH ×2 (10:43→21:03)
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
[2017-07-04] MEDS ORDERED: SODIUM CHLOR 0.9% 250 ML INJ 250 ML IV ONE (12:00)
[2017-07-04] MEDS: ENOXAPARIN SODIUM 40 MG/0.4 ML SYRINGE SQ SCH (12:06)
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
--- NOTE | 2017-07-04 14:59 | PD.ORT.PN ---
Subjective Subjective Remarks No new issues. No complaints. Objective Vitals Vital Signs Date Time Temp Pulse Resp B/P (MAP) Pulse Ox O2 Delivery O2 Flow Rate FiO2 07/04/17 13:06 18 07/04/17 12:00 99.4 86 18 148/65 (92) 96 07/04/17 08:00 99.2 89 18 137/56 (83) 98 07/04/17 06:16 18 07/04/17 04:06 99.1 90 18 140/64 (89) 98 07/04/17 00:10 99.2 86 18 137/56 (83) 98 07/03/17 21:56 Room Air 07/03/17 20:26 95 07/03/17 20:11 96.9 88 18 132/66 (88) 98 07/03/17 16:00 98.1 89 18 141/52 (81) 98 I/O 07/03/17 07/03/17 07/03/17 07/04/17 07/04/17 07/04/17 07:00 15:00 23:00 07:00 15:00 23:00 Intake Total 3553 ml 679 ml 800 ml 240 ml Output Total 575 ml 1575 ml 550 ml Balance 2978 ml 679 ml -775 ml -310 ml Intake Oral 800 ml 240 ml IV Total 3553 ml 679 ml Output Urine Total 575 ml 1575 ml 550 ml # Bowel Movements 0 0 Result Diagram: 07/04/17 0440 07/04/17 0440 Imaging Last 24 hours Impressions Radius/Ulna X-Ray 06/30/17 1701 Signed Impressions: Service Date/Time: June 17:14 - CONCLUSION: 1. Soft tissue injury in the proximal forearm with multiple radiopaque foreign bodies/debris primarily along the posterior ulnar aspect of the forearm. John Hinton MD Thoracic Spine CT 06/30/17 1522 Signed Impressions: Service Date/Time: June 15:38 - CONCLUSION: Normal examination. Cecil Terrazas MD Pelvis X-Ray 06/30/17 1522 Signed Impressions: Service Date/Time: June 15:23 - CONCLUSION: Unremarkable examination of the pelvis. Cecil Terrazas MD Lumbar Spine CT 06/30/17 1522 Signed Impressions: Service Date/Time: June 15:38 - CONCLUSION: No evidence of acute fracture. Large right-sided osteophyte at L5-S1 narrows the neural foramen. Mild narrowing at L5-S1 secondary to large central disc protrusion, chronic. No evidence of acute fracture. Cecil Terrazas MD Head CT 06/30/17 1522 Signed Impressions: Service Date/Time: , June 30, 2017 15:38 - CONCLUSION: Normal examination. Cecil Terrazas MD Chest X-Ray 06/30/17 1522 Signed Impressions: Service Date/Time: , June 30, 2017 15:23 - CONCLUSION: No acute disease. Wero Copeland Jr., MD Chest CT 06/30/17 1522 Signed Impressions: Service Date/Time: , June 30, 2017 15:49 - CONCLUSION: 1. No evidence for acute traumatic injury in the chest. John Hinton MD Cervical Spine CT 06/30/17 1522 Signed Impressions: Service Date/Time: June 15:47 - CONCLUSION: 1. Unstable C2 posterior process fractures. Fracture extends through the left C2 pedicle extending anteriorly to the posterior inferior C2 endplate with contralateral fracture through the right facets/pedicle junction. The 2. Fracture plane does extend through the left C2 transverse foramen. This may result in injury to the vertebral artery. Consider CTA examination if there is clinical concern. John Hinton MD Abdomen/Pelvis CT 06/30/17 1522 Signed Impressions: Service Date/Time: June 15:49 - CONCLUSION: 1. No acute traumatic injury in the abdomen or pelvis. 2. Ancillary findings include cholelithiasis and mild sigmoid diverticulosis. John Hinton MD Objective Remarks Laying in bed Cervical collar in place NAD A&O *3 LLE Dressing/splint c/d/i, no skin abrasion prox/distal at splint, Wiggles toes freely, mild swelling toes, cap refill less than 2 secs, calf nontender Assessment & Plan Assessment and Plan pod#3 s/p ORIF left tibia IM nail with ORIF left distal tibia and fibula no new issues. Ortho stable. Maintain left leg splint and dressing. No not change. Do not get wet. Nonweightbearing left leg. Ice / Elevate left foot Lovenox for DVT prophylaxis ordered in the in-pt computer (and Xarelto Rx noted on discharge orders) Neuro for cervical injury, C2 fracture. Case management for discharge planning. Von Coon Jr., MD Jul 04, 2017 14:59
[2017-07-04] MEDS: INSULIN DETEMIR 100 UNITS/ML VIAL SQ SCH (20:59)
[2017-07-04 21:20] LABS: HEMATOCRIT 28.2 % (35.0-46.0); HEMOGLOBIN 9.6 GM/DL (11.6-15.3)
[2017-07-05] VITALS: BP 138/58; PULSE 89; RESP 16; TEMP 99.4; O2SAT 98
[2017-07-05] MEDS: ONDANSETRON HCL 4 MG/2 ML VIAL IV PUSH PRN ×4 (00:17→17:54)
[2017-07-05 04:38] LABS: AUTOMATED NEUTROPHIL # 4.5 TH/MM3 (1.8-7.7); BASOPHIL % 0.7 % (0.0-2.0); EOSINOPHIL # 0.2 TH/MM3 (0-0.4); EOSINOPHIL % 3.4 % (0.0-4.0); HEMATOCRIT 25.7 % (35.0-46.0); HEMOGLOBIN 8.7 GM/DL (11.6-15.3); LYMPH % 21.2 % (9.0-44.0); LYMPHOCYTE # 1.5 TH/MM3 (1.0-4.8); MEAN CELL VOLUME 83.9 FL (80.0-100.0); MEAN CORPUSCULAR HEMOGLOBIN 28.4 PG (27.0-34.0); MEAN CORPUSCULAR HGB CONC 33.9 % (32.0-36.0); MEAN PLATELET VOLUME 8.9 FL (7.0-11.0); MONO % 10.9 % (0.0-8.0); MONOCYTE # 0.8 TH/MM3 (0-0.9); NEUT % 63.8 % (16.0-70.0); PLATELET COUNT 194 TH/MM3 (150-450); RED BLOOD COUNT 3.06 MIL/MM3 (4.00-5.30); RED CELL DISTRIBUTION WIDTH 13.8 % (11.6-17.2)
[2017-07-05 05:08] LABS: BICARBONATE 19.3 MEQ/L (21.0-32.0); CALCIUM 8.2 MG/DL (8.5-10.1); CREATININE 0.79 MG/DL (0.50-1.00)
[2017-07-05] MEDS: INSULIN ASPART SUPPLEMENTAL SCALE SQ SCH ×4 (06:27→18:20)
--- NOTE | 2017-07-05 07:39 | PD.ORT.PN ---
Subjective Subjective Remarks No new issues. No complaints. Objective Vitals Vital Signs Date Time Temp Pulse Resp B/P (MAP) Pulse Ox O2 Delivery O2 Flow Rate FiO2 07/05/17 00:00 99.4 89 16 138/58 (84) 98 07/04/17 20:11 98.7 81 18 134/63 (86) 99 07/04/17 20:11 98.7 81 18 134/63 99 07/04/17 16:45 98.2 79 18 129/60 98 07/04/17 16:30 98.7 85 18 140/61 96 07/04/17 16:00 98.7 85 18 140/61 (87) 96 07/04/17 13:06 18 07/04/17 12:00 99.4 86 18 148/65 (92) 96 07/04/17 08:00 99.2 89 18 137/56 (83) 98 I/O 07/04/17 07/04/17 07/04/17 07/05/17 07/05/17 07/05/17 07:00 15:00 23:00 07:00 15:00 23:00 Intake Total 240 ml 480 ml 895 ml 240 ml Output Total 550 ml 650 ml 375 ml Balance -310 ml -170 ml 895 ml -135 ml Intake Oral 240 ml 480 ml 480 ml 240 ml Packed Cells 400 ml Blood Product IV Normal Saline Flush 15 ml Output Urine Total 550 ml 650 ml 375 ml # Bowel Movements 0 0 Result Diagram: 07/05/17 0341 07/05/17 0341 Imaging Last 24 hours Impressions Radius/Ulna X-Ray 06/30/17 1701 Signed Impressions: Service Date/Time: June 17:14 - CONCLUSION: 1. Soft tissue injury in the proximal forearm with multiple radiopaque foreign bodies/debris primarily along the posterior ulnar aspect of the forearm. John Hinton MD Thoracic Spine CT 06/30/17 1522 Signed Impressions: Service Date/Time: June 15:38 - CONCLUSION: Normal examination. Cecil Terrazas MD Pelvis X-Ray 06/30/17 1522 Signed Impressions: Service Date/Time: June 15:23 - CONCLUSION: Unremarkable examination of the pelvis. Cecil Terrazas MD Lumbar Spine CT 06/30/17 1522 Signed Impressions: Service Date/Time: June 15:38 - CONCLUSION: No evidence of acute fracture. Large right-sided osteophyte at L5-S1 narrows the neural foramen. Mild narrowing at L5-S1 secondary to large central disc protrusion, chronic. No evidence of acute fracture. Cecil Terrazas MD Head CT 06/30/17 1522 Signed Impressions: Service Date/Time: , June 30, 2017 15:38 - CONCLUSION: Normal examination. Cecil Terrazas MD Chest X-Ray 06/30/17 1522 Signed Impressions: Service Date/Time: , June 30, 2017 15:23 - CONCLUSION: No acute disease. Wero Copeland Jr., MD Chest CT 06/30/17 1522 Signed Impressions: Service Date/Time: , June 30, 2017 15:49 - CONCLUSION: 1. No evidence for acute traumatic injury in the chest. John Hinton MD Cervical Spine CT 06/30/17 1522 Signed Impressions: Service Date/Time: June 15:47 - CONCLUSION: 1. Unstable C2 posterior process fractures. Fracture extends through the left C2 pedicle extending anteriorly to the posterior inferior C2 endplate with contralateral fracture through the right facets/pedicle junction. The 2. Fracture plane does extend through the left C2 transverse foramen. This may result in injury to the vertebral artery. Consider CTA examination if there is clinical concern. John Hinton MD Abdomen/Pelvis CT 06/30/17 1522 Signed Impressions: Service Date/Time: June 15:49 - CONCLUSION: 1. No acute traumatic injury in the abdomen or pelvis. 2. Ancillary findings include cholelithiasis and mild sigmoid diverticulosis. John Hinton MD Objective Remarks Laying in bed Cervical collar in place NAD A&O *3 LLE Dressing/splint c/d/i, no skin abrasion prox/distal at splint, Wiggles toes freely, mild swelling toes, cap refill less than 2 secs, calf nontender Assessment & Plan Assessment and Plan pod#4 s/p ORIF left tibia IM nail with ORIF left distal tibia and fibula no new issues. Ortho stable. Maintain left leg splint and dressing. Do not change. CDI. Nonweightbearing left leg. Ice / Elevate left foot Lovenox for DVT prophylaxis ordered in the in-pt computer (and Xarelto Rx noted on discharge orders) Neuro for cervical injury, C2 fracture. Case management for discharge planning. Von Coon Jr., MD Jul 05, 2017 07:39
[2017-07-05 08:00] VITALS: BP 147/64; PULSE 82; RESP 18; TEMP 98.5; O2SAT 98
[2017-07-05] MEDS ORDERED: BISACODYL EC 5 MG TABEC PO ONE (08:30)
[2017-07-05] MEDS ORDERED: BISACODYL 10 MG SUPP RECTAL ONE (08:30)
[2017-07-05] MEDS: FAMOTIDINE 20 MG TAB PO SCH ×2 (08:52→21:43)
[2017-07-05] MEDS ORDERED: ALLO100T PO (08:52)
[2017-07-05] MEDS: GABAPENTIN 300 MG CAP PO SCH ×2 (08:53→12:02)
[2017-07-05] MEDS: DOCUSATE SODIUM 50 MG/SENNA 8.6 MG TAB PO SCH (08:54)
[2017-07-05] MEDS: MAGNESIUM HYDROXIDE SUSP 30 ML CUP PO SCH ×2 (08:55→21:43)
[2017-07-05] MEDS: LACTULOSE SYRUP 20 GM/30 ML CUP PO SCH (08:55)
[2017-07-05] MEDS: SODIUM CHLORIDE 0.9% FLUSH 10 ML FLUSH IV FLUSH SCH ×2 (08:56→21:52)
[2017-07-05] MEDS: METOPROLOL TARTRATE 50 MG TAB PO SCH ×2 (09:04→21:43)
[2017-07-05] MEDS: acetaZOLAMIDE 125 MG TAB PO SCH ×3 (09:04→17:55)
[2017-07-05] MEDS: PILOCARPINE HCL 1% OPHT SOLN 15 ML BTL RIGHT EYE SCH ×3 (09:05→18:00)
[2017-07-05] MEDS: FLUTICASONE PROPIONATE 50 MCG/ACT 16 GM NASAL SPRAY NASAL SCH ×2 (09:05→21:43)
[2017-07-05] MEDS: INSULIN DETEMIR 100 UNITS/ML VIAL SQ SCH ×2 (09:06→21:43)
[2017-07-05] MEDS: INSULIN ASPART 1,000 UNITS/10 ML VIAL SQ SCH ×3 (09:30→18:21)
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
[2017-07-05 12:00] VITALS: BP 135/67; PULSE 74; RESP 18; TEMP 98.6; O2SAT 98
[2017-07-05] MEDS: ENOXAPARIN SODIUM 40 MG/0.4 ML SYRINGE SQ SCH (12:01)
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
[2017-07-05] MEDS ORDERED: MORPHINE SULFATE 2 MG/ML INJ IV PUSH PRN (13:15)
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
[2017-07-05 16:00] VITALS: BP 136/62; PULSE 76; RESP 18; TEMP 98.8; O2SAT 97
--- NOTE | 2017-07-05 16:07 | RADRPT ---
EXAM DATE/TIME: 07/05/2017 14:58 [facility] COMPARISON: No previous studies available for comparison. INDICATIONS : Right lower leg pain when standing. MEDICAL HISTORY : None. SURGICAL HISTORY : ORIF left tib/fib. ENCOUNTER: Initial ACUITY: 3 days PAIN SCORE: 8/10 LOCATION: Right lower leg. FINDINGS: Mild soft tissue swelling is seen along the ankle. Bony structures are intact. There is notice of fra cture or significant arthropathy. CONCLUSION: Mild soft tissue swelling of the ankle otherwise no evidence of acute process. Puma Sánchez MD on July 05, 2017 at 15:53 Board Certified Radiologist. This report was verified electronically.
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
[2017-07-05] MEDS: GABAPENTIN 400 MG CAP PO SCH (18:10)
[2017-07-05] MEDS ORDERED: ALLOPURINOL 100 MG TAB PO SCH (21:00)
[2017-07-05] MEDS ORDERED: ALLOPURINOL 300 MG TAB PO ONE (21:30)
[2017-07-05] MEDS ORDERED: ALLO300T2 PO (21:33)
[2017-07-05 21:45] VITALS: BP 144/65; PULSE 76; RESP 20; TEMP 98.3; O2SAT 98
[2017-07-06] MEDS: INSULIN ASPART SUPPLEMENTAL SCALE SQ SCH ×4 (00:30→17:53)
[2017-07-06] MEDS: ONDANSETRON HCL 4 MG/2 ML VIAL IV PUSH PRN ×3 (00:30→14:59)
[2017-07-06 00:52] VITALS: BP 133/61; PULSE 73; RESP 20; TEMP 99.5; O2SAT 96
[2017-07-06 04:48] VITALS: BP 132/60; PULSE 77; RESP 20; TEMP 98.5; O2SAT 95
[2017-07-06] MEDS ORDERED: NOVOLOGSS SQ (06:37)
[2017-07-06] MEDS ORDERED: FAMO20TA2 PO (06:37)
[2017-07-06] MEDS ORDERED: Glucagon Inj OTHER (06:37)
[2017-07-06] MEDS ORDERED: MAGN30S PO (06:37)
[2017-07-06] MEDS ORDERED: Albuterol-Ipratropium Neb NEB (06:37)
[2017-07-06] MEDS ORDERED: Lactulose Liq PO (06:37)
[2017-07-06] MEDS ORDERED: OXYC-392 PO (06:37)
[2017-07-06] MEDS ORDERED: ENOX40P SQ (06:37)
[2017-07-06] MEDS ORDERED: METO-309 PO (06:37)
[2017-07-06] MEDS ORDERED: NEUR400C PO (06:37)
[2017-07-06] MEDS ORDERED: DEXTR50%P IV PUSH (06:37)
[2017-07-06] MEDS ORDERED: PERI PO (06:37)
[2017-07-06 07:44] VITALS: BP 126/59; PULSE 79; RESP 18; TEMP 99.3; O2SAT 98
[2017-07-06] MEDS: GABAPENTIN 400 MG CAP PO SCH ×3 (08:43→17:39)
[2017-07-06] MEDS: FAMOTIDINE 20 MG TAB PO SCH ×2 (08:44→20:33)
[2017-07-06] MEDS: METOPROLOL TARTRATE 50 MG TAB PO SCH ×2 (08:44→20:32)
[2017-07-06] MEDS: acetaZOLAMIDE 125 MG TAB PO SCH ×3 (08:44→17:39)
[2017-07-06] MEDS: PILOCARPINE HCL 1% OPHT SOLN 15 ML BTL RIGHT EYE SCH ×3 (08:53→17:53)
[2017-07-06] MEDS: INSULIN DETEMIR 100 UNITS/ML VIAL SQ SCH ×2 (08:53→20:34)
[2017-07-06] MEDS: MAGNESIUM HYDROXIDE SUSP 30 ML CUP PO SCH ×2 (08:54→20:33)
[2017-07-06] MEDS: FLUTICASONE PROPIONATE 50 MCG/ACT 16 GM NASAL SPRAY NASAL SCH ×2 (08:54→20:32)
[2017-07-06] MEDS: LACTULOSE SYRUP 20 GM/30 ML CUP PO SCH (08:54)
[2017-07-06] MEDS: SODIUM CHLORIDE 0.9% FLUSH 10 ML FLUSH IV FLUSH SCH ×2 (08:55→20:33)
[2017-07-06] MEDS: INSULIN ASPART 1,000 UNITS/10 ML VIAL SQ SCH ×3 (08:57→17:53)
[2017-07-06 11:27] VITALS: BP 158/73; PULSE 79; RESP 18; TEMP 98.8; O2SAT 98
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
[2017-07-06] MEDS: ENOXAPARIN SODIUM 40 MG/0.4 ML SYRINGE SQ SCH (12:41)
--- NOTE | 2017-07-06 12:58 | PD.ORT.PN ---
Subjective Subjective Remarks No new issues. No complaints. Objective Vitals Vital Signs Date Time Temp Pulse Resp B/P (MAP) Pulse Ox O2 Delivery O2 Flow Rate FiO2 07/06/17 11:27 98.8 79 18 158/73 (101) 98 07/06/17 07:44 99.3 79 18 126/59 (81) 98 07/06/17 04:48 98.5 77 20 132/60 (84) 95 07/06/17 00:52 99.5 73 20 133/61 (85) 96 07/05/17 21:45 98.3 76 20 144/65 (91) 98 07/05/17 16:00 98.8 76 18 136/62 (86) 97 I/O 07/05/17 07/05/17 07/05/17 07/06/17 07/06/17 07/06/17 07:00 15:00 23:00 07:00 15:00 23:00 Intake Total 240 ml 320 ml Output Total 375 ml 625 ml 600 ml Balance -135 ml -305 ml -600 ml Intake Oral 240 ml 320 ml Output Urine Total 375 ml 625 ml 600 ml Bladder Scan Volume Amount 300 ml # Voids 0 # Bowel Movements 2 1 Result Diagram: 07/05/17 0341 07/05/17 0341 Imaging Last 24 hours Impressions Radius/Ulna X-Ray 06/30/17 1701 Signed Impressions: Service Date/Time: June 17:14 - CONCLUSION: 1. Soft tissue injury in the proximal forearm with multiple radiopaque foreign bodies/debris primarily along the posterior ulnar aspect of the forearm. John Hinton MD Thoracic Spine CT 06/30/17 1522 Signed Impressions: Service Date/Time: June 15:38 - CONCLUSION: Normal examination. Cecil Terrazas MD Pelvis X-Ray 06/30/17 1522 Signed Impressions: Service Date/Time: June 15:23 - CONCLUSION: Unremarkable examination of the pelvis. Cecil Terrazas MD Lumbar Spine CT 06/30/17 1522 Signed Impressions: Service Date/Time: June 15:38 - CONCLUSION: No evidence of acute fracture. Large right-sided osteophyte at L5-S1 narrows the neural foramen. Mild narrowing at L5-S1 secondary to large central disc protrusion, chronic. No evidence of acute fracture. Cecil Terrazas MD Head CT 06/30/17 1522 Signed Impressions: Service Date/Time: , June 30, 2017 15:38 - CONCLUSION: Normal examination. Cecil Terrazas MD Chest X-Ray 06/30/17 1522 Signed Impressions: Service Date/Time: , June 30, 2017 15:23 - CONCLUSION: No acute disease. Wero Copeland Jr., MD Chest CT 06/30/17 1522 Signed Impressions: Service Date/Time: , June 30, 2017 15:49 - CONCLUSION: 1. No evidence for acute traumatic injury in the chest. John Hinton MD Cervical Spine CT 06/30/17 1522 Signed Impressions: Service Date/Time: , June 30, 2017 15:47 - CONCLUSION: 1. Unstable C2 posterior process fractures. Fracture extends through the left C2 pedicle extending anteriorly to the posterior inferior C2 endplate with contralateral fracture through the right facets/pedicle junction. The 2. Fracture plane does extend through the left C2 transverse foramen. This may result in injury to the vertebral artery. Consider CTA examination if there is clinical concern. John Hinton MD Abdomen/Pelvis CT 06/30/17 1522 Signed Impressions: Service Date/Time: , June 30, 2017 15:49 - CONCLUSION: 1. No acute traumatic injury in the abdomen or pelvis. 2. Ancillary findings include cholelithiasis and mild sigmoid diverticulosis. John Hinton MD Objective Remarks Laying in bed Cervical collar in place NAD A&O *3 LLE Dressing/splint c/d/i, no skin abrasion prox/distal at splint, Wiggles toes freely, mild swelling toes, cap refill less than 2 secs, calf nontender Assessment & Plan Assessment and Plan pod#5 s/p ORIF left tibia IM nail with ORIF left distal tibia and fibula no new issues. Ortho stable. Maintain left leg splint and dressing. Do not change. CDI. Nonweightbearing left leg. Ice / Elevate left foot Lovenox for DVT prophylaxis ordered in the in-pt computer (and Xarelto Rx noted on discharge orders) Neuro for cervical injury, C2 fracture. Case management for discharge planning. Von Coon Jr., MD Jul 06, 2017 12:58
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
[2017-07-06] MEDS ORDERED: SODIUM CHLOR 0.9% 1000 ML INJ 1,000 ML IV ONE (13:30)
[2017-07-06 15:31] VITALS: BP 127/60; PULSE 84; RESP 18; TEMP 99.8; O2SAT 97
[2017-07-06] MEDS: ALLOPURINOL 300 MG TAB PO SCH (20:32)
[2017-07-06 21:13] VITALS: BP 138/59; PULSE 85; RESP 18; TEMP 100.6; O2SAT 95
[2017-07-07 00:48] VITALS: BP 145/62; PULSE 83; RESP 19; TEMP 100.7; O2SAT 94
[2017-07-07 04:00] VITALS: BP 136/62; PULSE 83; RESP 19; TEMP 101.2; O2SAT 95
[2017-07-07] MEDS: INSULIN ASPART SUPPLEMENTAL SCALE SQ SCH ×5 (06:00→23:59)
[2017-07-07 08:00] VITALS: BP 153/70; PULSE 81; RESP 19; TEMP 100.8; O2SAT 97
[2017-07-07] MEDS: MAGNESIUM HYDROXIDE SUSP 30 ML CUP PO SCH ×2 (09:00→21:00)
[2017-07-07] MEDS: GABAPENTIN 400 MG CAP PO SCH ×3 (09:09→18:06)
[2017-07-07] MEDS: FAMOTIDINE 20 MG TAB PO SCH ×2 (09:09→20:10)
[2017-07-07] MEDS: METOPROLOL TARTRATE 50 MG TAB PO SCH ×2 (09:09→20:10)
[2017-07-07] MEDS: acetaZOLAMIDE 125 MG TAB PO SCH ×3 (09:09→18:06)
[2017-07-07] MEDS: ONDANSETRON HCL 4 MG/2 ML VIAL IV PUSH PRN ×2 (09:10→18:05)
[2017-07-07] MEDS: PILOCARPINE HCL 1% OPHT SOLN 15 ML BTL RIGHT EYE SCH ×3 (09:17→18:14)
[2017-07-07] MEDS: FLUTICASONE PROPIONATE 50 MCG/ACT 16 GM NASAL SPRAY NASAL SCH ×2 (09:18→23:58)
[2017-07-07] MEDS: INSULIN DETEMIR 100 UNITS/ML VIAL SQ SCH ×2 (09:20→20:13)
[2017-07-07] MEDS: SODIUM CHLORIDE 0.9% FLUSH 10 ML FLUSH IV FLUSH SCH ×2 (09:20→21:00)
[2017-07-07] MEDS: INSULIN ASPART 1,000 UNITS/10 ML VIAL SQ SCH ×3 (09:21→18:07)
--- NOTE | 2017-07-07 09:45 | HHI.PR ---
Subjective Remarks Patient seen in follow up for tib/fib fracture and c2 fx Now with new fever of 101.2 Complains of congestion, no rash, no new pains other than fracture Objective Vitals Vital Signs Date Time Temp Pulse Resp B/P (MAP) Pulse Ox O2 Delivery O2 Flow Rate FiO2 07/07/17 08:00 100.8 81 19 153/70 (97) 97 07/07/17 04:00 101.2 83 19 136/62 (86) 95 07/07/17 00:48 100.7 83 19 145/62 (89) 94 07/06/17 21:13 100.6 85 18 138/59 (85) 95 07/06/17 15:31 99.8 84 18 127/60 (82) 97 07/06/17 11:27 98.8 79 18 158/73 (101) 98 I/O 07/06/17 07/06/17 07/06/17 07/07/17 07/07/17 07/07/17 07:00 15:00 23:00 07:00 15:00 23:00 Intake Total 900 ml 240 ml 240 ml Output Total 900 ml 250 ml 400 ml Balance 0 ml -10 ml -160 ml Intake Oral 900 ml 240 ml 240 ml Output Urine Total 900 ml 250 ml 400 ml Bladder Scan Volume Amount 300 ml # Voids 0 # Bowel Movements 1 1 0 0 Result Diagram: 07/05/17 0341 07/05/17 0341 Imaging Last Impressions Cervical Spine X-Ray 07/05/17 1300 Signed Impressions: Service Date/Time: Wednesday, July 05, 2017 15:08 - CONCLUSION: 1. Very mild traumatic anterolisthesis of C2 on C3 which remains stable during flexion and extension however very limited range of motion is noted. 2. No other evidence of significant listhesis. Puma Sánchez MD Tibia/Fibula X-Ray 07/05/17 0000 Signed Impressions: Service Date/Time: Wednesday, July 05, 2017 14:58 - CONCLUSION: Mild soft tissue swelling of the ankle otherwise no evidence of acute process. Puma Sánchez MD Cervical Spine MRI 07/02/17 0000 Signed Impressions: Service Date/Time: Sunday, July 02, 2017 17:55 - CONCLUSION: 1. C2 fracture again seen. There is mild widening of the C2-3 disc posteriorly and mild flexion at C2-3. No gross spondylolisthesis. 2. Multilevel degenerative findings. Stan Cuellar MD Radius/Ulna X-Ray 06/30/17 1701 Signed Impressions: Service Date/Time: , June 30, 2017 17:14 - CONCLUSION: 1. Soft tissue injury in the proximal forearm with multiple radiopaque foreign bodies/debris primarily along the posterior ulnar aspect of the forearm. John Hinton MD Thoracic Spine CT 06/30/17 1522 Signed Impressions: Service Date/Time: , June 30, 2017 15:38 - CONCLUSION: Normal examination. Cecil Terrazas MD Pelvis X-Ray 06/30/17 1522 Signed Impressions: Service Date/Time: , June 30, 2017 15:23 - CONCLUSION: Unremarkable examination of the pelvis. Cecil Terrazas MD Lumbar Spine CT 06/30/17 1522 Signed Impressions: Service Date/Time: June 15:38 - CONCLUSION: No evidence of acute fracture. Large right-sided osteophyte at L5-S1 narrows the neural foramen. Mild narrowing at L5-S1 secondary to large central disc protrusion, chronic. No evidence of acute fracture. Cecil Terrazas MD Head CT 06/30/17 1522 Signed Impressions: Service Date/Time: , June 30, 2017 15:38 - CONCLUSION: Normal examination. Cecil Terrazas MD Chest X-Ray 06/30/17 1522 Signed Impressions: Service Date/Time: June 15:23 - CONCLUSION: No acute disease. Wero Copeland Jr., MD Chest CT 06/30/17 1522 Signed Impressions: Service Date/Time: June 15:49 - CONCLUSION: 1. No evidence for acute traumatic injury in the chest. John Hinton MD Cervical Spine CT 06/30/17 1522 Signed Impressions: Service Date/Time: June 15:47 - CONCLUSION: 1. Unstable C2 posterior process fractures. Fracture extends through the left C2 pedicle extending anteriorly to the posterior inferior C2 endplate with contralateral fracture through the right facets/pedicle junction. The 2. Fracture plane does extend through the left C2 transverse foramen. This may result in injury to the vertebral artery. Consider CTA examination if there is clinical concern. John Hinton MD Abdomen/Pelvis CT 06/30/17 1522 Signed Impressions: Service Date/Time: June 15:49 - CONCLUSION: 1. No acute traumatic injury in the abdomen or pelvis. 2. Ancillary findings include cholelithiasis and mild sigmoid diverticulosis. John Hinton MD Ankle X-Ray 06/30/17 0000 Signed Impressions: Service Date/Time: June 15:23 - CONCLUSION: Markedly comminuted rotated fracture of the distal tibia and fibula. Additional talar dome fracture and fracture through the medial malleolus base. Cecil Terrazas MD Objective Remarks [place] collar, lower extremity splint postop GENERAL: This is a well-nourished, well-developed patient, in no apparent distress. CARDIOVASCULAR: Regular rate and rhythm without murmurs, gallops, or rubs. RESPIRATORY: Clear to auscultation. Breath sounds equal bilaterally. No wheezes , rales, or rhonchi. GASTROINTESTINAL: Abdomen soft, non-tender, nondistended. Normal active bowel sounds MUSCULOSKELETAL: Extremities without clubbing, cyanosis, or edema. NEURO: Alert & Oriented x4 to person, place, time, situation. Moves all ext x4 Procedures 09/01 Open reduction total fixation left distal tibia and fibula fractures, intramedullary nail fixation of left tibia A/P Problem List: (1) DM2 (diabetes mellitus, type 2) ICD Code: E11.9 - Type 2 diabetes mellitus without complications Status: Chronic Plan: Improved on 80 units twice a day Increased Po intake on ADA diet (2) HTN (hypertension) ICD Code: I10 - Essential (primary) hypertension Status: Acute Plan: Controlled on home metoprolol (3) Closed C2 fracture ICD Code: S12.100A - Unspecified displaced fracture of second cervical vertebra , initial encounter for closed fracture Status: Acute Plan: Avoid excessive extension and flexion of the neck, continue [place] collar , neurosurgery cleared for dc (4) Postoperative anemia due to acute blood loss ICD Code: D62 - Acute posthemorrhagic anemia Plan: status post transfusion, improved, follow trend (5) Fever ICD Code: R50.9 - Fever, unspecified Plan: MAXIMUM TEMPERATURE 101.2 Etiology unclear, workup in progress (chest x-ray, urine, cbc, bmp) patient ambulation, ISS encouraged Discharge Planning to [facility] when stable Problem Qualifiers (1) DM2 (diabetes mellitus, type 2): Qualified Codes: E11.8 - Type 2 diabetes mellitus with unspecified complications; Z79.4 - prison (current) use of insulin (2) HTN (hypertension): Qualified Codes: I10 - Essential (primary) hypertension (3) Closed C2 fracture: Qualified Codes: S12.191A - Other nondisplaced fracture of second cervical vertebra, initial encounter for closed fracture Jyoti Dent MD Jul 07, 2017 09:45
--- NOTE | 2017-07-07 09:59 | RADRPT ---
EXAM DATE/TIME: 07/07/2017 09:45 [facility] COMPARISON: CHEST SINGLE AP, June 30, 2017, 15:23. INDICATIONS : Fever MEDICAL HISTORY : Diabetes mellitus type II. SURGICAL HISTORY : Hysterectomy. Left ankle ORIF ENCOUNTER: Initial ACUITY: 4 - 6 days PAIN SCORE: 0/10 LOCATION: chest FINDINGS: A single view of the chest demonstrates the lungs to be symmetrically aerated with right perihilar li near atelectatic changes. There is some blunting of the left costophrenic angle which may represent p leural parenchymal scarring or small effusion. Heart size is normal. Osseous structures are intact wi th degenerative spurring of the dorsal spine. CONCLUSION: 1. Linear atelectatic changes in the right perihilar distribution. Otherwise, no acute infiltrate. 2. Blunting of the left costophrenic angle may represent pleural parenchymal atelectasis or small eff usion. Neeraj Hanson MD on July 07, 2017 at 9:56 Board Certified Radiologist. This report was verified electronically.
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
[2017-07-07 11:12] LABS: AUTOMATED NEUTROPHIL # 6.1 TH/MM3 (1.8-7.7); BASOPHIL # 0.1 TH/MM3 (0-0.2); BASOPHIL % 0.9 % (0.0-2.0); EOSINOPHIL # 0.1 TH/MM3 (0-0.4); EOSINOPHIL % 1.7 % (0.0-4.0); HEMATOCRIT 30.7 % (35.0-46.0); HEMOGLOBIN 10.2 GM/DL (11.6-15.3); LYMPH % 14.7 % (9.0-44.0); LYMPHOCYTE # 1.3 TH/MM3 (1.0-4.8); MEAN CELL VOLUME 83.6 FL (80.0-100.0); MEAN CORPUSCULAR HEMOGLOBIN 27.7 PG (27.0-34.0); MEAN CORPUSCULAR HGB CONC 33.1 % (32.0-36.0); MONO % 13.4 % (0.0-8.0); MONOCYTE # 1.2 TH/MM3 (0-0.9); NEUT % 69.3 % (16.0-70.0); PLATELET COUNT 240 TH/MM3 (150-450); RED BLOOD COUNT 3.67 MIL/MM3 (4.00-5.30); RED CELL DISTRIBUTION WIDTH 14.2 % (11.6-17.2); WHITE BLOOD COUNT 8.7 TH/MM3 (4.0-11.0)
[2017-07-07 11:30] LABS: BACTERIA, URINE OCC /hpf; BILIRUBIN, URINE NEG (NEG); BLOOD, URINE TRACE (NEG); GLUCOSE,URINE NEG (NEG); HYALINE CAST, URINE 1 /lpf (RARE); KETONE, URINE 10 mg/dL (NEG); MUCUS URINE FEW /lpf (OCC); NITRITE,URINE NEG (NEG); SQUAMOUS EPITHELIAL CELL URINE 1 /hpf (0-5); URINE COLOR YELLOW (YELLW/STRAW); URINE LEUKOCYTE ESTERASE SMALL (NEG)
[2017-07-07 11:50] LABS: BICARBONATE 18.8 MEQ/L (21.0-32.0); CALCIUM 8.8 MG/DL (8.5-10.1); CREATININE 0.78 MG/DL (0.50-1.00)
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
[2017-07-07 12:00] VITALS: BP 140/56; PULSE 81; RESP 18; TEMP 100.2; O2SAT 94
[2017-07-07] MEDS: ENOXAPARIN SODIUM 40 MG/0.4 ML SYRINGE SQ SCH (12:05)
[2017-07-07] MEDS ORDERED: POTASSIUM CHLORIDE 25 MEQ EFFERVESCENT TAB PO ONE (13:00)
[2017-07-07 16:00] VITALS: BP_SYST 139; BP_SYST 141; BP_DIAS 69; BP_DIAS 97; PULSE 75; PULSE 88; RESP 19; TEMP 97.4; TEMP 99.6; O2SAT 96; O2SAT 97
[2017-07-07] MEDS ORDERED: FLUT50SP NASAL (19:49)
[2017-07-07 20:05] VITALS: BP 139/54; PULSE 86; RESP 18; TEMP 98.2; O2SAT 96
[2017-07-07] MEDS: ALLOPURINOL 300 MG TAB PO SCH (20:10)
--- NOTE | 2017-07-07 20:15 | PD.ORT.PN ---
Subjective Subjective Remarks No new ortho issues. Objective Vitals Vital Signs Date Time Temp Pulse Resp B/P (MAP) Pulse Ox O2 Delivery O2 Flow Rate FiO2 07/07/17 16:00 99.6 88 19 141/69 (93) 97 07/07/17 12:00 100.2 81 18 140/56 (84) 94 07/07/17 08:00 100.8 81 19 153/70 (97) 97 07/07/17 04:00 101.2 83 19 136/62 (86) 95 07/07/17 00:48 100.7 83 19 145/62 (89) 94 07/06/17 21:13 100.6 85 18 138/59 (85) 95 I/O 07/06/17 07/06/17 07/06/17 07/07/17 07/07/17 07/07/17 07:00 15:00 23:00 07:00 15:00 23:00 Intake Total 900 ml 240 ml 240 ml Output Total 900 ml 250 ml 400 ml 1000 ml Balance 0 ml -10 ml -160 ml -1000 ml Intake Oral 900 ml 240 ml 240 ml Output Urine Total 900 ml 250 ml 400 ml 1000 ml Bladder Scan Volume Amount 300 ml # Voids 0 # Bowel Movements 1 1 0 0 Result Diagram: 07/07/17 1030 07/07/17 1030 Imaging Last 24 hours Impressions Radius/Ulna X-Ray 06/30/17 1701 Signed Impressions: Service Date/Time: June 17:14 - CONCLUSION: 1. Soft tissue injury in the proximal forearm with multiple radiopaque foreign bodies/debris primarily along the posterior ulnar aspect of the forearm. John Hinton MD Thoracic Spine CT 06/30/17 1522 Signed Impressions: Service Date/Time: June 15:38 - CONCLUSION: Normal examination. Cecil Terrazas MD Pelvis X-Ray 06/30/17 1522 Signed Impressions: Service Date/Time: June 15:23 - CONCLUSION: Unremarkable examination of the pelvis. Cecil Terrazas MD Lumbar Spine CT 06/30/17 1522 Signed Impressions: Service Date/Time: June 15:38 - CONCLUSION: No evidence of acute fracture. Large right-sided osteophyte at L5-S1 narrows the neural foramen. Mild narrowing at L5-S1 secondary to large central disc protrusion, chronic. No evidence of acute fracture. Cecil Terrazas MD Head CT 06/30/17 1522 Signed Impressions: Service Date/Time: , June 30, 2017 15:38 - CONCLUSION: Normal examination. Cecil Terrazas MD Chest X-Ray 06/30/17 1522 Signed Impressions: Service Date/Time: , June 30, 2017 15:23 - CONCLUSION: No acute disease. Wero Copeland Jr., MD Chest CT 06/30/17 1522 Signed Impressions: Service Date/Time: , June 30, 2017 15:49 - CONCLUSION: 1. No evidence for acute traumatic injury in the chest. John Hinton MD Cervical Spine CT 06/30/17 1522 Signed Impressions: Service Date/Time: June 15:47 - CONCLUSION: 1. Unstable C2 posterior process fractures. Fracture extends through the left C2 pedicle extending anteriorly to the posterior inferior C2 endplate with contralateral fracture through the right facets/pedicle junction. The 2. Fracture plane does extend through the left C2 transverse foramen. This may result in injury to the vertebral artery. Consider CTA examination if there is clinical concern. John Hinton MD Abdomen/Pelvis CT 06/30/17 1522 Signed Impressions: Service Date/Time: June 15:49 - CONCLUSION: 1. No acute traumatic injury in the abdomen or pelvis. 2. Ancillary findings include cholelithiasis and mild sigmoid diverticulosis. John Hinton MD Objective Remarks Laying in bed Cervical collar in place NAD A&O *3 LLE Dressing/splint c/d/i, no skin abrasion prox/distal at splint, Wiggles toes freely, mild swelling toes, cap refill less than 2 secs, calf nontender Assessment & Plan Assessment and Plan pod#6 s/p ORIF left tibia IM nail with ORIF left distal tibia and fibula Ortho stable. no new ortho issues Maintain left leg splint and dressing. Do not change. CDI. Nonweightbearing left leg. Ice / Elevate left foot Lovenox for DVT prophylaxis ordered in the in-pt computer (and Xarelto Rx noted on discharge orders) Neuro for cervical injury, C2 fracture. Case management for discharge planning. Von Coon Jr., MD Jul 07, 2017 20:15
[2017-07-08 00:05] VITALS: BP 136/52; PULSE 82; RESP 19; TEMP 98.3; O2SAT 96
[2017-07-08] MEDS: INSULIN ASPART SUPPLEMENTAL SCALE SQ SCH ×2 (06:17→12:00)
[2017-07-08] MEDS: ONDANSETRON HCL 4 MG/2 ML VIAL IV PUSH PRN ×2 (06:24→12:44)
[2017-07-08 08:00] VITALS: BP 127/47; PULSE 82; RESP 21; TEMP 99.5; O2SAT 96
[2017-07-08] MEDS: acetaZOLAMIDE 125 MG TAB PO SCH ×2 (09:00→12:32)
[2017-07-08] MEDS: METOPROLOL TARTRATE 50 MG TAB PO SCH (09:00)
[2017-07-08] MEDS: INSULIN DETEMIR 100 UNITS/ML VIAL SQ SCH (09:00)
[2017-07-08] MEDS: PILOCARPINE HCL 1% OPHT SOLN 15 ML BTL RIGHT EYE SCH (09:00)
[2017-07-08] MEDS: FAMOTIDINE 20 MG TAB PO SCH (09:00)
[2017-07-08] MEDS: SODIUM CHLORIDE 0.9% FLUSH 10 ML FLUSH IV FLUSH SCH (09:00)
[2017-07-08] MEDS: GABAPENTIN 400 MG CAP PO SCH ×2 (09:00→12:32)
[2017-07-08] MEDS: FLUTICASONE PROPIONATE 50 MCG/ACT 16 GM NASAL SPRAY NASAL SCH (09:00)
[2017-07-08] MEDS: MAGNESIUM HYDROXIDE SUSP 30 ML CUP PO SCH (09:00)
[2017-07-08] MEDS: INSULIN ASPART 1,000 UNITS/10 ML VIAL SQ SCH (09:30)
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
[2017-07-08 12:00] VITALS: BP 121/73; PULSE 83; RESP 20; TEMP 99.4; O2SAT 95
[2017-07-08] MEDS: ENOXAPARIN SODIUM 40 MG/0.4 ML SYRINGE SQ SCH (12:32)
--- NOTE | 2017-07-08 14:04 | HHI.PR ---
Subjective Remarks Pt being discharged today by primary team. pain controlled. denies any burning w urination Objective Vitals Vital Signs Date Time Temp Pulse Resp B/P (MAP) Pulse Ox O2 Delivery O2 Flow Rate FiO2 07/08/17 12:00 99.4 83 20 121/73 (89) 95 07/08/17 08:00 99.5 82 21 127/47 (73) 96 07/08/17 00:05 98.3 82 19 136/52 (80) 96 07/07/17 20:05 98.2 86 18 139/54 (82) 96 07/07/17 16:00 99.6 88 19 141/69 (93) 97 I/O 07/07/17 07/07/17 07/07/17 07/08/17 07/08/17 07/08/17 07:00 15:00 23:00 07:00 15:00 23:00 Intake Total 240 ml 240 ml 240 ml Output Total 400 ml 1000 ml 300 ml 500 ml Balance -160 ml -1000 ml -60 ml -260 ml Intake Oral 240 ml 240 ml 240 ml Output Urine Total 400 ml 1000 ml 300 ml 500 ml # Bowel Movements 0 0 0 Result Diagram: 07/07/17 1030 07/07/17 1030 Imaging Last Impressions Chest X-Ray 07/07/17 0000 Signed Impressions: Service Date/Time: June 09:45 - CONCLUSION: 1. Linear atelectatic changes in the right perihilar distribution. Otherwise, no acute infiltrate. 2. Blunting of the left costophrenic angle may represent pleural parenchymal atelectasis or small effusion. Neeraj Hanson MD Cervical Spine X-Ray 07/05/17 1300 Signed Impressions: Service Date/Time: Wednesday, July 05, 2017 15:08 - CONCLUSION: 1. Very mild traumatic anterolisthesis of C2 on C3 which remains stable during flexion and extension however very limited range of motion is noted. 2. No other evidence of significant listhesis. Puma Sánchez MD Tibia/Fibula X-Ray 07/05/17 0000 Signed Impressions: Service Date/Time: Wednesday, July 05, 2017 14:58 - CONCLUSION: Mild soft tissue swelling of the ankle otherwise no evidence of acute process. Puma Sánchez MD Cervical Spine MRI 07/02/17 0000 Signed Impressions: Service Date/Time: Sunday, July 02, 2017 17:55 - CONCLUSION: 1. C2 fracture again seen. There is mild widening of the C2-3 disc posteriorly and mild flexion at C2-3. No gross spondylolisthesis. 2. Multilevel degenerative findings. Stan Cuellar MD Radius/Ulna X-Ray 06/30/17 1701 Signed Impressions: Service Date/Time: June 17:14 - CONCLUSION: 1. Soft tissue injury in the proximal forearm with multiple radiopaque foreign bodies/debris primarily along the posterior ulnar aspect of the forearm. John Hinton MD Thoracic Spine CT 06/30/17 1522 Signed Impressions: Service Date/Time: , June 30, 2017 15:38 - CONCLUSION: Normal examination. Cecil Terrazas MD Pelvis X-Ray 06/30/17 1522 Signed Impressions: Service Date/Time: June 15:23 - CONCLUSION: Unremarkable examination of the pelvis. Cecil Terrazas MD Lumbar Spine CT 06/30/17 1522 Signed Impressions: Service Date/Time: June 15:38 - CONCLUSION: No evidence of acute fracture. Large right-sided osteophyte at L5-S1 narrows the neural foramen. Mild narrowing at L5-S1 secondary to large central disc protrusion, chronic. No evidence of acute fracture. Cecil Terrazas MD Head CT 06/30/17 1522 Signed Impressions: Service Date/Time: June 15:38 - CONCLUSION: Normal examination. Cecil Terrazas MD Chest CT 06/30/17 1522 Signed Impressions: Service Date/Time: June 15:49 - CONCLUSION: 1. No evidence for acute traumatic injury in the chest. John Hinton MD Cervical Spine CT 06/30/17 1522 Signed Impressions: Service Date/Time: June 15:47 - CONCLUSION: 1. Unstable C2 posterior process fractures. Fracture extends through the left C2 pedicle extending anteriorly to the posterior inferior C2 endplate with contralateral fracture through the right facets/pedicle junction. The 2. Fracture plane does extend through the left C2 transverse foramen. This may result in injury to the vertebral artery. Consider CTA examination if there is clinical concern. John Hinton MD Abdomen/Pelvis CT 06/30/17 1522 Signed Impressions: Service Date/Time: June 15:49 - CONCLUSION: 1. No acute traumatic injury in the abdomen or pelvis. 2. Ancillary findings include cholelithiasis and mild sigmoid diverticulosis. John Hinton MD Ankle X-Ray 06/30/17 0000 Signed Impressions: Service Date/Time: , June 30, 2017 15:23 - CONCLUSION: Markedly comminuted rotated fracture of the distal tibia and fibula. Additional talar dome fracture and fracture through the medial malleolus base. Cecil Terrazas MD Objective Remarks [place] collar, lower extremity splint postop GENERAL: laying in bed CARDIOVASCULAR: Regular rate and rhythm without murmurs RESPIRATORY: Clear to auscultation. Breath sounds equal bilaterally. No wheezes GASTROINTESTINAL: Abdomen soft, non-tender, nondistended. Normal active bowel sounds MUSCULOSKELETAL: Extremities without edema. NEURO: Alert & awake, answering question Procedures 09/01 Open reduction total fixation left distal tibia and fibula fractures, intramedullary nail fixation of left tibia A/P Problem List: (1) DM2 (diabetes mellitus, type 2) ICD Code: E11.9 - Type 2 diabetes mellitus without complications Status: Chronic (2) HTN (hypertension) ICD Code: I10 - Essential (primary) hypertension Status: Acute (3) Closed C2 fracture ICD Code: S12.100A - Unspecified displaced fracture of second cervical vertebra , initial encounter for closed fracture Status: Acute (4) Postoperative anemia due to acute blood loss ICD Code: D62 - Acute posthemorrhagic anemia (5) Fever ICD Code: R50.9 - Fever, unspecified Assessment and Plan (1) DM2 (diabetes mellitus, type 2) Improved on 80 units twice a day Increased Po intake on ADA diet (2) HTN (hypertension) Controlled on home metoprolol (3) Closed C2 fracture Avoid excessive extension and flexion of the neck, continue [place] collar, neurosurgery cleared for dc (4) Postoperative anemia due to acute blood loss status post transfusion, improved, follow trend (5) Fever afebrile now Etiology unclear, Chest x-ray concerning for atelectasis. Pt was encouraged to use IS q1hr while awake. Urine cx growing reanna. Pt has matthews and will be discharged w it due to retention. will treat w 3 days of diflucan. 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
[2017-07-08] MEDS ORDERED: DIFL150T PO ×2 (14:13→14:15)
== END 2017-07-08 14:43 | DRG 493 ==
LOC: NEPI 15:19 → NEDA 17:35 → N03A 07-01 01:14 → N06A 07-03 10:42
PROVIDERS: ADMIT Surgery; ATTEND Surgery
PROC: 0HQEXZZ Repair Left Lower Arm Skin, External Approach (ICD-10-PCS; 2017-06-30)
PROC: 0HCEXZZ Extirpation of Matter from Left Lower Arm Skin, External Approach (ICD-10-PCS; 2017-06-30)
PROC: 0QSH06Z Reposition Left Tibia with Intramedullary Internal Fixation Device, Open Approach (ICD-10-PCS; 2017-07-01)
PROC: 0QSK04Z Reposition Left Fibula with Internal Fixation Device, Open Approach (ICD-10-PCS; 2017-07-01)
PROC: 0QSH04Z Reposition Left Tibia with Internal Fixation Device, Open Approach (ICD-10-PCS; principal; 2017-07-01 09:12)
PROC: 30233N1 Transfusion of Nonautologous Red Blood Cells into Peripheral Vein, Percutaneous Approach (ICD-10-PCS; 2017-07-04)
PROC: 0T9B70Z Drainage of Bladder with Drainage Device, Via Natural or Artificial Opening (ICD-10-PCS; 2017-07-06)
DX: S82.252A Displaced comminuted fracture of shaft of left tibia, initial encounter for closed fracture (principal); S12.101A Unspecified nondisplaced fracture of second cervical vertebra, initial encounter for closed fracture; I95.9 Hypotension, unspecified; D62 Acute posthemorrhagic anemia; S82.832A Other fracture of upper and lower end of left fibula, initial encounter for closed fracture; S82.52XA Displaced fracture of medial malleolus of left tibia, initial encounter for closed fracture; V49.49XA Driver injured in collision with other motor vehicles in traffic accident, initial encounter; Y92.410 Unspecified street and highway as the place of occurrence of the external cause; Y93.89 Activity, other specified; S51.822A Laceration with foreign body of left forearm, initial encounter; M43.12 Spondylolisthesis, cervical region; S00.12XA Contusion of left eyelid and periocular area, initial encounter; S80.211A Abrasion, right knee, initial encounter; E11.9 Type 2 diabetes mellitus without complications; S92.102A Unspecified fracture of left talus, initial encounter for closed fracture; I10 Essential (primary) hypertension; M54.9 Dorsalgia, unspecified; G89.29 Other chronic pain; R05 Cough; R33.9 Retention of urine, unspecified; Z79.4 Long term (current) use of insulin; R50.9 Fever, unspecified; S51.012A Laceration without foreign body of left elbow, initial encounter
CPT/HCPCS: 12005; 29515; 36430; 70450; 71010; 71250; 72040; 72125; 72128; 72131; 72141; 72170; 73090; 73590; 73600; 74176; 76000; 80048; 80053; 81001; 82435; 82565; 82947; 82948; 84132; 84295; 84520; 85014; 85018; 85025; 85610; 85730; 86850; 86900; 86901; 86920; 87086; 87641; 90715; 93005; 94150; 94640; 94664; 96374; 99291; C1713; G0390; J0330; J0360; J0690; J1170; J1580; J1650; J1815; J1885; J2270; J2405; J2710; J3370; J7030; J7050; J7120; L0150; L0172; P9016